=== PATIENT | female | born 1980 | race African-American/Black ===

== ENCOUNTER 2016-08-08 22:50 | Emergency (ER) | payer OTHER ==
[2016-08-08 23:09] VITALS: BP 122/70; BMI 36.0
--- NOTE | 2016-08-09 00:03 | DR.GENAD ---
HPI - PCP Primary Care Physician: - Complaint/Symptoms Chief Complaint:: chronic abcess on left breast. abcess was I&D yesterday tried to change packing but could not stomach changing it. patient got light headed when trying to change it. started about an hour ago. - Source History Provided: Patient - Mode of Arrival Mode of Arrival: Ambulatory - Timing Onset of Chief Complaint: 08/08/16 PMH - PMH Past Medical History: Yes Past Medical History: Hypertension Past Medical History Comment: lupus, pulomonary htn,chronic abcess Past Surgical History: Yes Surgical History: Unknown Past Surgical History Comment: cold cone(cevix biopsy) - Family History History of Family Medical Conditions: Yes Family Medical History: Diabetes Mellitus, Cancer, [place], Heart Failure, Hypertension - Social History Does patient currently use any type of tobacco product: Yes Have you used tobacco products in the last 12 months: Yes Type of Tobacco Use: Cigars Does any household member use tobacco: Yes Alcohol Use: Occasionally Do you use any recreational Drugs:: No Lives With: Friend Lives Where: Home - infectious screening In the last 2 months have you had wt loss of >10#?: NO Have you had fever, night sweats or hemotysis?: No Have you traveled outside the country in the last 6 months?: No Isolation: Standard ROS - Review of Systems Eyes: No Symptoms Reported ENTM: No Symptoms Reported Respiratoy: No Symptoms Reported Cardiovascular: No Symptoms Reported Gastrointestinal/Abdominal: No Symptoms Reported Genitourinary: No Symptoms Reported Neurological: No Symptoms Reported Musculoskeletal: No Symptoms Reported Integumentary: Lesions (Left breast with 4cm I&D site ) Hematologic/Lymphatic: No Symptoms Reported Endocrine: No Symptoms Reported Psychiatric: No Symptoms Reported All Other Systems: Reviewed and Negative PE - Vital Signs Vitals: Temperature 98.6 F Pulse Rate 71 Respiratory Rate 20 Blood Pressure 122/70 O2 Sat by Pulse Oximetry 100 - General General Appearance: Alert, In No Apparent Distress - Eyes Eye exam: Normal Appearance, PERRL, EOMI - ENT ENT Exam: Normal Exam External Ear Exam: Normal External Inspection TM/Canal Exam: Bilateral Normal Nose Exam: Normal Nose Exam, Sinus Tenderness Mouth Exam: Normal Inspection Throat Exam: Normal Inspection - Neck Neck Exam: Normal Inspection - Chest Chest Inspection: Normal Inspection - Respiratory Respiratory Exam: Normal Lung Sounds Bilat Respiratory Exam: Bilateral Clear to Auscultation - Cardiovascular Cardiovascular Exam: Regular Rate, Normal Rhythm - Abdominal Exam Abdominal Exam: Normal Inspection Abdominal Tenderness: negative: RUQ, RLQ, LUQ, LLQ, Epigastrium, Suprapubic, Diffuse, Mild, Moderate, Severe, Other - Extremities Extremities Exam: Normal Inspection, Full ROM - Back Back Exam: Normal Inspection, Full ROM - Neurologic Neurological Exam: Alert, Oriented X3, CN II-XII Intact - Psychiatric Psychiatric Exam: Normal Affect - Skin Skin Exam: Warm, Dry, Intact Procedures - Procedure Comments Procedures: Redressed previous I&D site w/o problems - Diagnosis Discharge Problem: Dressing change or removal, surgical wound - Discharge Plan Condition: Stable - Follow ups/Referrals Follow ups/Referrals: NFD,None [Primary Care Provider] - 3 days - Instructions
== END 2016-08-09 00:11 | disposition home or self-care (01) ==
LOC: ER 23:12
DX: N61.1 Abscess of the breast and nipple (principal)
CPT/HCPCS: 99282

== ENCOUNTER → 2016-11-06 | Outpatient (CLI) | payer OTHER ==
--- NOTE | 2016-11-06 09:46 | MRI ---
HISTORY: Chronic low back pain Study: MRI of the lumbar spine Comparison: None Technique: Multiplanar multi-sequence MRI of the lumbar spine was obtained. Sagittal T1, sagittal T2 , and stir weighted images, axial T1, and axial T2 images were obtained. Findings: Mild endplate degenerative changes are noted at L5/S1. Otherwise the lumbar vertebral body heights ar e relatively maintained. No evidence of acute displaced fracture or significant subluxation is identi fied. Intervertebral disc space narrowing and disc desiccation are seen at L5/S1. The conus medullari s terminates at approximately T12/L1. L1 -- L2: No significant central canal or neuroforaminal stenosis is identified. L2 -- L3: No significant central canal or neuroforaminal stenosis is identified. L3 -- L4: No significant central canal or neuroforaminal stenosis is identified. L4 -- L5: Slight posterior disc bulge with ligamentum flavum and and facet arthropathy without eviden ce of significant central canal or neuroforaminal stenosis. L5 -- S1: Posterior disc bulge with ligamentum flavum and facet hypertrophy resulting in mild left ne uroforaminal stenosis. No significant central canal or right neuroforaminal stenosis is identified. IMPRESSION: Degenerative changes of the lower lumbar spine as noted above. Reported By:
== END | disposition home or self-care (01) | DRG 552 ==
LOC: RAD 08:33
PROVIDERS: ATTEND Psychiatry & Neurology Pain Medicine
DX: M54.5 Low back pain (principal); M51.36 Other intervertebral disc degeneration, lumbar region
CPT/HCPCS: 72148